=== PATIENT | female | born 1960 | race Caucasian/White ===

== ENCOUNTER → 2017-05-04 | Outpatient (CLI) | payer OTHER ==
[~2017-05-04] MED LIST: ISOS30TA4 PO; LOSA50TA20 PO; MELO15TA4 PO; METO25TA4 PO; NITR0.4S14 SL; OMEP20CA3 PO; SERT25TA88 PO; ZITHTAB PO
[2017-05-04 13:28] LABS: ALBUMIN 3.7 GM/DL (3.2-5.2); ALKALINE PHOSPHATASE 69 U/L (45-117); ALT/SGPT 37 U/L (12-78); ANION GAP 4 MEQ/L (8-16); AST/SGOT 15 U/L (15-37); BILIRUBIN,TOTAL 0.4 MG/DL (0.2-1.0); BLOOD UREA NITROGEN 17 MG/DL (7-18); CALCIUM LEVEL 9.2 MG/DL (8.5-10.1); CARBON DIOXIDE LEVEL 28 MEQ/L (21-32); CHLORIDE LEVEL 109 MEQ/L (98-107); CREATININE FOR GFR 0.81 MG/DL (0.55-1.02); GLOMERULAR FILTRATION RATE > 60.0 (>51); GLUCOSE, FASTING 100 MG/DL (70-105); POTASSIUM SERUM 4.7 MEQ/L (3.5-5.1); SODIUM LEVEL 141 MEQ/L (136-145); TOTAL PROTEIN 7.4 GM/DL (6.4-8.2)
[2017-05-04 13:31] LABS: BASO % 0.6 % (0.0-1.0); EOS # 0.2 K/mm3 (0.0-0.50); EOS % 4.1 % (0.0-3.0); LARGE UNSTAINED CELL # 0.1 K/mm3 (0.0-0.4); LARGE UNSTAINED CELL % 2.1 % (0.0-4.0); LYMPH # 1.8 K/mm3 (1.5-4.5); MEAN CORPUSCULAR HEMOGLOBIN 30.4 pg (27.0-33.0); MEAN CORPUSCULAR HGB CONC 34.1 g/dl (32.0-36.5); MEAN CORPUSCULAR VOLUME 89.1 fl (80.0-96.0); MONO # 0.3 K/mm3 (0.0-0.8); MONO % 4.3 % (0.0-5.0); NEUTROPHILS # 3.4 K/mm3 (1.8-7.7); NEUTROPHILS % 57.9 % (36.0-66.0); PLATELET COUNT, AUTOMATED 183 k/mm3 (150-450); RED CELL DISTRIBUTION WIDTH 12.9 % (11.5-14.5); WHITE BLOOD COUNT 5.9 K/mm3 (4.0-10.0)
== END ==
LOC: M SMT 11:04
PROVIDERS: ATTEND Podiatrist
DX: Z01.812 Encounter for preprocedural laboratory examination (principal)

== ENCOUNTER 2017-05-13 07:35 | Day surgery (SDC) | payer OTHER ==
[~2017-05-13] VITALS: Ht 170.2 cm; Wt 117.9 kg
[~2017-05-13 07:35] MED LIST changes: -ZITHTAB PO
[2017-05-13] MEDS ORDERED: VANCOMYCIN HCL 1,000 MG, VIAL MATE ADAPTER 1 EACH in D5W 250 ML IV ONE (08:00)
[2017-05-13] MEDS ORDERED: LR 1,000 ML IV ONE (08:00)
[2017-05-13] MEDS ORDERED: MIDAZOLAM INJ 2 MG/2 ML VIAL (J2250) As Ordered ONE (08:07)
[2017-05-13] MEDS ORDERED: LIDOCAINE 2% INJ 100 MG/5 ML SDV (FOR ANES.) As Ordered ONE (08:07)
[2017-05-13] MEDS ORDERED: PROPOFOL 200 MG/20 ML VIAL As Ordered ONE ×2 (08:07→12:17)
[2017-05-13] MEDS ORDERED: fentaNYL 100 MCG/2 ML INJECTION (J3010) As Ordered ONE (08:08)
[2017-05-13] MEDS ORDERED: ZITHTAB PO (08:19)
[2017-05-13] MEDS ORDERED: BUPIVACAINE HCL 0.5% 30 ML VIAL As Ordered ONE (09:13)
[2017-05-13] MEDS ORDERED: NEOSPORIN GU IRRIG 20 ML VIAL As Ordered ONE (09:13)
[2017-05-13] MEDS ORDERED: BACITRACIN PWD 50,000 UNITS VIAL As Ordered ONE (09:13)
[2017-05-13] MEDS ORDERED: LIDOCAINE 2% MDV 20 ML VIAL As Ordered ONE (09:13)
[2017-05-13] MEDS ORDERED: dexameTHASONE 4 MG/ML 1ML VIAL (J1100) As Ordered ONE (09:14)
[2017-05-13] MEDS ORDERED: ONDANSETRON 4MG/2ML VIAL (J2405) IV PRN (11:30)
[2017-05-13] MEDS ORDERED: NORCO, ANEXSIA 5/325MG TABLET (HYDROcodone/ACETAMINOPHEN) PO PRN (11:30)
[2017-05-13] MEDS ORDERED: LR 1,000 ML IV SCH (11:30)
[2017-05-13] MEDS ORDERED: fentaNYL 100 MCG/2 ML INJECTION (J3010) IV PRN (11:30)
[2017-05-13 13:20] VITALS: BP 140/85
[2017-05-13] MEDS ORDERED: NORCO, ANEXSIA 5/325MG TABLET (HYDROcodone/ACETAMINOPHEN) As Ordered ONE (13:35)
--- NOTE | 2017-05-13 14:40 | REP ---
RIGHT FOOT, THREE VIEWS: HISTORY: Postop. The patient is status post arthrodesis of the proximal interphalangeal joint space of the second digit. A metal pin is present. A metal pin is present in the head of the second metatarsal. There is no acute fracture or dislocation. IMPRESSION: Postoperative change as described above. There is anatomic alignment. Signed by Truong Sneed MD 05/13/2017 02:41 P
--- NOTE | 2017-05-14 09:29 | RO ---
DATE OF PROCEDURE: 05/13/2017 PREPROCEDURE DIAGNOSIS: Dislocated 2nd metatarsophalangeal joint with long 2nd metatarsal and hammertoe deformity 2nd toe, right foot. POSTPROCEDURE DIAGNOSIS: Dislocated 2nd metatarsophalangeal joint with long 2nd metatarsal and hammertoe deformity 2nd toe, right foot. PROCEDURE: 1. Shortening 2nd metatarsal osteotomy with internal screw fixation 2.0 mm x 13 mm x 1, right foot. 2. Proximal interphalangeal joint arthroplasty with DigiFuse fixation 2.0 x 10 degree angled 2nd toe, right foot:. SURGEON: Dr. Fuad Kaur DPM IRRIGATING PUMP OPERATOR: None. ANESTHESIA: Local MAC IRRIGATION: Dilute bacitracin, neomycin and polymyxin B solution HEMOSTASIS: Ankle pneumatic tourniquet at 200 mmHg, 72 minutes. IMPLANTS UTILIZED: 2 mm QuickFix Titanium screw 2.0 x 13 mm. DESCRIPTION OF PROCEDURE: On 05/13/2017, this 57-year-old white female was taken from her hospital room to the operating room and placed on the operating table in supine position. Following the induction of IV sedation and local and regional anesthesia, the right lower extremity was prepped and draped in the usual aseptic manner. Attention was directed to the patient's right foot where the following procedure was performed: SHORTENING 2nd METATARSAL OSTEOTOMY WITH INTERNAL SCREW FIXATION 2.0 mm x 13 mm x 1, RIGHT FOOT: Attention was directed to the patient's right foot where an incision was made from the proximal interphalangeal joint with the apex off-centered into the lateral sulcus and then curving onto the metatarsal. The incision was deepened through the subcutaneous tissue and all coursing venous tributaries were identified, underscored, clamp, ligated and electrocoagulated as necessary. Dissection was carried down to the extensor tendons, which were retracted in a medial direction and a linear incision was placed along the capsule, exposing the head of the 2nd metatarsal. Utilizing a power saw, an osteotomy was performed through the cartilage of the 2nd metatarsal and temporarily shortened 10 mm and held with a Steinmann pin. 4 mm of bone was then shaved off the dorsal ledge. This was extirpated from the wound. Attention was then directed to the 2nd toe where the following procedure was performed: PROXIMAL INTERPHALANGEAL JOINT ARTHROPLASTY WITH DIGIFUSE FIXATION 2.0 x 10 DEGREE ANGLED 2nd TOE, RIGHT FOOT: A tenotomy was performed at the level of the proximal interphalangeal joint of the 2nd toe and the extensor expansion and lam were released. Medial and lateral collateral ligaments were sharply dissected free from the proximal phalanx. Utilizing a power saw, an osteotomy was performed at the anatomical neck of the proximal phalanx from dorsal to plantar, through and through and extirpated from the wound in toto. The cartilage off the middle phalanx was similarly osteotomized from dorsal to plantar. This would later be closed with a 2.0 x 10 degree angled DigiFuse. Attention was then directed now to the plantar plate, which was noted to have a full tear of the plantar plate with the exception of a small attached lateral margin. Utilizing a Scorpion with #2 FiberWire, the plantar plate was grasped. Two drill holes were drilled parallel through the proximal phalanx and then the suture was retrieved up in a dorsal fashion. The Steinmann pin was then pulled from the 2nd metatarsal. The metatarsal was brought to its normal position after being shortened 4 mm and fixated with a snap-off 2.0 x 13 mm titanium screw. DigiFuse was then placed through the proximal phalanx with a 2.0 x 10 degree angled and this was set in the standard fashion. The toe was then held in a plantar flexed position and #2 FiberWire was then used to attach the plantar plate to the base of the proximal phalanx, which was previously roughed with a handheld file on the plantar margin to facilitate ingrowth. The wound was flushed with copious amounts of dilute bacitracin, neomycin and polymyxin B solution. The extensor tendon was repaired with #2-0 braided looped nylon suture in a four-stranded Block repair. Skin was coapted and maintained with #4-0 Prolene in a simple interrupted type fashion with an apical stitch at the apex of the wound. Attention was directed towards bandaging where a sterile compressive bandage was applied consisting of Adaptic, 4 x 4's, 4 x 4 splints, Abelino, Kerlix and Coban. Ankle pneumatic tourniquet was rapidly deflated and instantaneous capillary filling time was noted in digits 1-5 of the patient's right foot. The patient having apparently tolerated the surgical procedure well was taken from the operating room to the recovery room, vital signs stable, patient afebrile, further monitoring by the anesthesia department. All surgical specimens removed during the operative procedure were sent to Pathology for gross and microscopic examination. Postoperative instructions given upon discharge. JORGE
== END 2017-05-13 14:30 | disposition home or self-care (01) ==
LOC: M SDC 07:35
PROVIDERS: ATTEND Podiatrist
DX: M20.41 Other hammer toe(s) (acquired), right foot (principal); M79.671 Pain in right foot; S93.124A Dislocation of metatarsophalangeal joint of right lesser toe(s), initial encounter; X58.XXXA Exposure to other specified factors, initial encounter; Y92.89 Other specified places as the place of occurrence of the external cause; Y93.89 Activity, other specified; Y99.8 Other external cause status; I10 Essential (primary) hypertension; K21.9 Gastro-esophageal reflux disease without esophagitis; K44.9 Diaphragmatic hernia without obstruction or gangrene; F41.9 Anxiety disorder, unspecified; F32.9 Major depressive disorder, single episode, unspecified; J45.909 Unspecified asthma, uncomplicated; R07.89 Other chest pain; Z88.2 Allergy status to sulfonamides; Z88.0 Allergy status to penicillin
CPT/HCPCS: 28285; 28308; 28899; 73630; 88300; 97116; C1776

== ENCOUNTER → 2017-11-12 | Outpatient (CLI) | payer OTHER ==
[2017-11-12 18:00] LABS: BASO % 0.3 % (0.0-1.0); EOS # 0.3 10^3/uL (0.0-0.50); EOS % 3.2 % (0.0-3.0); HEMATOCRIT 44.1 % (36.0-47.0); HEMOGLOBIN 14.4 g/dl (12.0-16.0); IMMATURE GRANULOCYTE % 0.2 % (0-3.0); LYMPH # 2.7 10^3/uL (1.5-4.5); LYMPH % 30.8 % (24.0-44.0); MEAN CORPUSCULAR HEMOGLOBIN 29.7 pg (27.0-33.0); MEAN CORPUSCULAR HGB CONC 32.7 g/dl (32.0-36.5); MEAN CORPUSCULAR VOLUME 90.9 fl (80.0-96.0); MONO # 0.6 10^3/uL (0.0-0.8); MONO % 7.3 % (0.0-5.0); NEUTROPHILS # 5.1 10^3/uL (1.8-7.7); NEUTROPHILS % 58.2 % (36.0-66.0); PLATELET COUNT, AUTOMATED 240 10^3/uL (150-450); RED BLOOD COUNT 4.85 10^6/uL (4.00-5.40); RED CELL DISTRIBUTION WIDTH 12.6 % (11.5-14.5); WHITE BLOOD COUNT 8.8 10^3/uL (4.0-10.0)
== END ==
LOC: M ADAMS 16:37
DX: J20.9 Acute bronchitis, unspecified (principal)
CPT/HCPCS: 85025

== ENCOUNTER 2018-11-25 14:16 | Emergency (ER) | payer OTHER ==
[~2018-11-25] VITALS: Ht 170.2 cm; Wt 118.6 kg
[~2018-11-25 14:16] MED LIST changes: -LOSA50TA20 PO; +LOSA50TA88 PO; +MELO15TA28 PO; -MELO15TA4 PO; +ZITHTAB PO
[2018-11-25 15:12] LABS: BASO % 0.2 % (0.0-1.0); EOS # 0.1 10^3/uL (0.0-0.50); EOS % 1.2 % (0.0-3.0); HEMATOCRIT 44.3 % (36.0-47.0); HEMOGLOBIN 14.8 g/dl (12.0-15.5); LYMPH # 1.3 10^3/uL (1.5-4.5); LYMPH % 21.8 % (24.0-44.0); MEAN CORPUSCULAR HEMOGLOBIN 29.8 pg (27.0-33.0); MEAN CORPUSCULAR HGB CONC 33.4 g/dl (32.0-36.5); MEAN CORPUSCULAR VOLUME 89.3 fl (80.0-96.0); MONO # 0.5 10^3/uL (0.0-0.8); NEUTROPHILS # 3.9 10^3/uL (1.8-7.7); NEUTROPHILS % 68.6 % (36.0-66.0); PLATELET COUNT, AUTOMATED 188 10^3/uL (150-450); RED BLOOD COUNT 4.96 10^6/uL (4.00-5.40); WHITE BLOOD COUNT 5.7 10^3/uL (4.0-10.0)
[2018-11-25] MEDS ORDERED: PANTOPRAZOLE 40MG INJ (PROTONIX) (C9113) IV ONE (15:15)
[2018-11-25] MEDS ORDERED: NS 1,000 ML IV ONE (15:15)
[2018-11-25] MEDS ORDERED: METOCLOPRAMIDE INJ 10MG/2ML VIAL (J2765) IV ONE (15:15)
[2018-11-25 15:41] LABS: ALBUMIN 3.8 GM/DL (3.2-5.2); BILIRUBIN,DIRECT 0.2 MG/DL (0.0-0.2); BILIRUBIN,TOTAL 0.9 MG/DL (0.2-1.0); CALCIUM LEVEL 8.5 MG/DL (8.5-10.1); CREATININE FOR GFR 1.18 MG/DL (0.55-1.30); GLOMERULAR FILTRATION RATE 50.3 (>51); POTASSIUM SERUM 4.1 MEQ/L (3.5-5.1); TOTAL PROTEIN 7.7 GM/DL (6.4-8.2)
--- NOTE | 2018-11-25 15:55 | REP ---
Acute abdominal series three views including PA chest and supine upright abdomen: PA chest: Comparison is 11/21/2011. The lung jennings are clear. Cardiac size is normal. The victorino, mediastinum, skeletal structures are unremarkable. There is no free subdiaphragmatic air. Impression: Negative PA chest. Abdomen, three views including two supine and one upright views: The bowel gas pattern is normal. There is a faintly visible calcification in the pelvis on the left, nonspecific, ureteral versus phlebolith. The skeletal structures and soft tissues otherwise are unremarkable except for mild scoliosis convex right at the thoracolumbar junction and left in the lower lumbar spine. Impression: Normal bowel gas pattern. Scoliosis. Pelvic calcification as described. Electronically Signed by Mario Johnson MD 11/25/2018 03:47 P
[2018-11-25] MEDS ORDERED: IMOD2CAP PO (16:11)
[2018-11-25 16:55] VITALS: BP 128/64
--- NOTE | 2018-11-26 17:44 | ECGEPIP ---
Stationary ECG Study [facility] - ED Test Date: 2018-11-25 Pat Name: DUSTIN CONRAD Department: Room: - Gender: F [employer]: joy : 1960 Requested By: Gen Engle Order Number: [id number] Reading MD: Mary Jane Fan Measurements Intervals [place] Rate: 73 P: 18 OK: 163 QRS: 1 QRSD: 89 T: 3 QT: 376 QTc: 415 Interpretive Statements SINUS RHYTHM LOW QRS VOLTAGE IN PRECORDIAL LEADS POSSIBLE INFERIOR MYOCARDIAL INFARCTION, PROBABLY OLD NSTTW ABNORMALITY DELAYED R PROGRESSION INCREASED RATE 11/22/11 Electronically Signed On 11-26-2018 17:44:15 EST by Mary Jane Fan
== END 2018-11-25 16:57 | disposition home or self-care (01) ==
LOC: M ED 14:16
DX: A08.4 Viral intestinal infection, unspecified (principal); K21.9 Gastro-esophageal reflux disease without esophagitis
CPT/HCPCS: 74021; 80048; 80076; 83690; 85025; 93005; 93041; 96374; 96375; 99284; C9113; J2765

== ENCOUNTER 2019-09-27 22:31 | Emergency (ER) | payer OTHER ==
[~2019-09-27] VITALS: Ht 170.2 cm; Wt 122.7 kg
[~2019-09-27 22:31] MED LIST changes: +IMOD2CAP PO; +OMEP-172 PO; -OMEP20CA3 PO; +SERT25TA21 PO; -SERT25TA88 PO
[2019-09-28 00:13] LABS: BASO % 0.4 % (0.0-1.0); EOS # 0.2 10^3/uL (0.0-0.5); EOS % 1.6 % (0.0-3.0); HEMATOCRIT 46.7 % (36.0-47.0); HEMOGLOBIN 15.4 g/dl (12.0-15.5); LYMPH # 1.5 10^3/uL (1.5-5.0); LYMPH % 14.6 % (24.0-44.0); MEAN CORPUSCULAR VOLUME 90.9 fl (80.0-96.0); MONO # 0.6 10^3/uL (0.0-0.8); PLATELET COUNT, AUTOMATED 236 10^3/uL (150-450); RED BLOOD COUNT 5.14 10^6/uL (4.00-5.40); WHITE BLOOD COUNT 10.4 10^3/uL (4.0-10.0)
[2019-09-28 00:22] LABS: ALBUMIN 3.9 GM/DL (3.2-5.2); BILIRUBIN,DIRECT 0.2 MG/DL (0.0-0.2); BILIRUBIN,TOTAL 0.5 MG/DL (0.2-1.0); CALCIUM LEVEL 8.8 MG/DL (8.5-10.1); CREATININE FOR GFR 1.13 MG/DL (0.55-1.30); GLOMERULAR FILTRATION RATE 52.6 (>51); POTASSIUM SERUM 3.9 MEQ/L (3.5-5.1); TOTAL PROTEIN 7.8 GM/DL (6.4-8.2)
[2019-09-28] MEDS ORDERED: ONDANSETRON 4MG/2ML VIAL (J2405) IV ONE (00:45)
[2019-09-28] MEDS ORDERED: NS 1,000 ML IV ONE (01:30)
[2019-09-28] MEDS ORDERED: KETOROLAC 30 MG/ML VIAL (J1885) IV ONE (01:30)
[2019-09-28] MEDS ORDERED: ZOFR4TAB16 PO (01:44)
[2019-09-28 03:51] VITALS: BP 117/76
== END 2019-09-28 03:53 | disposition home or self-care (01) ==
LOC: M ED 22:31
DX: R19.7 Diarrhea, unspecified (principal); R11.0 Nausea; I10 Essential (primary) hypertension; K21.9 Gastro-esophageal reflux disease without esophagitis; F41.9 Anxiety disorder, unspecified; K44.9 Diaphragmatic hernia without obstruction or gangrene; J45.909 Unspecified asthma, uncomplicated; Z88.0 Allergy status to penicillin; Z88.2 Allergy status to sulfonamides; Z79.899 Other long term (current) drug therapy
CPT/HCPCS: 80048; 80076; 83690; 85025; 96361; 96374; 96375; 99284; J1885; J2405

== ENCOUNTER 2021-12-03 13:25 | Emergency (ER) | payer OTHER ==
[~2021-12-03] VITALS: Ht 170.2 cm; Wt 123.8 kg
[~2021-12-03 13:25] MED LIST changes: -ONDA4TAB6 PO
[2021-12-03 13:26] VITALS: BP 145/78
[2021-12-03] MEDS ORDERED: ONDANSETRON 4 MG ORAL DISINTEGRATING TAB PO ONE (14:55)
[2021-12-03] MEDS ORDERED: ONDA4TAB6 PO ×2 (16:09→16:18)
== END 2021-12-03 16:37 | disposition home or self-care (01) ==
LOC: M ED 13:25
DX: U09.9 Post COVID-19 condition, unspecified (principal); R11.2 Nausea with vomiting, unspecified; R19.7 Diarrhea, unspecified; M54.2 Cervicalgia; W00.0XXA Fall on same level due to ice and snow, initial encounter; Y92.9 Unspecified place or not applicable; Y93.9 Activity, unspecified; Y99.9 Unspecified external cause status; M47.812 Spondylosis without myelopathy or radiculopathy, cervical region; M50.30 Other cervical disc degeneration, unspecified cervical region; I10 Essential (primary) hypertension; J45.909 Unspecified asthma, uncomplicated; K21.9 Gastro-esophageal reflux disease without esophagitis; K58.8 Other irritable bowel syndrome; F41.9 Anxiety disorder, unspecified; F32.A Depression, unspecified; F17.200 Nicotine dependence, unspecified, uncomplicated; Z88.0 Allergy status to penicillin; Z88.2 Allergy status to sulfonamides; Z79.899 Other long term (current) drug therapy
CPT/HCPCS: 70450; 72125; 93005; 99284; Q0162

== ENCOUNTER → 2021-12-03 | Outpatient (CLI) | payer OTHER ==
[~2021-12-03] MED LIST changes: +ISOS1TAB35 PO; -ISOS30TA4 PO; +LOSA50TA28 PO; -LOSA50TA88 PO; -OMEP-172 PO; +OMEP1CAP73 PO; +ONDA4TAB6 PO; +ZOFR4TAB16 PO
[2021-12-03 13:23] LABS: HEMATOCRIT 44.7 % (36.0-47.0); HEMOGLOBIN 14.6 g/dl (12.0-15.5); MEAN CORPUSCULAR HEMOGLOBIN 29.7 pg (27.0-33.0); MEAN CORPUSCULAR HGB CONC 32.7 g/dl (32.0-36.5); PLATELET COUNT, AUTOMATED 217 10^3/uL (150-450); RED BLOOD COUNT 4.91 10^6/uL (4.00-5.40); WHITE BLOOD COUNT 7.3 10^3/uL (4.0-10.0)
[2021-12-03 13:47] LABS: ALBUMIN 4.1 GM/DL (3.2-5.2); BILIRUBIN,TOTAL 0.5 MG/DL (0.2-1.0); CALCIUM LEVEL 9.1 MG/DL (8.8-10.2); CHOLESTEROL RISK RATIO 4.764 (<5); CREATININE FOR GFR 1.06 MG/DL (0.55-1.30); GLOMERULAR FILTRATION RATE 56.3 (>45); POTASSIUM SERUM 4.2 MEQ/L (3.5-5.1); TOTAL PROTEIN 7.9 GM/DL (6.4-8.2)
== END ==
LOC: M WUC 10:33
PROVIDERS: ATTEND Internal Medicine Cardiovascular Disease
DX: Z00.00 Encounter for general adult medical examination without abnormal findings (principal)

== ENCOUNTER → 2021-12-05 | Outpatient (REF) | payer OTHER ==
[~2021-12-05] MED LIST changes: +ONDA4TAB6 PO
== END ==
LOC: M LAB REF 09:30
PROVIDERS: ATTEND Physician Assistant Medical
DX: R19.7 Diarrhea, unspecified (principal)

== ENCOUNTER → 2023-06-24 | Outpatient (CLI) | payer OTHER | LOC: M RAD 15:40 | PROVIDERS: ATTEND Internal Medicine Cardiovascular Disease | DX: J44.9 Chronic obstructive pulmonary disease, unspecified (principal); R13.10 Dysphagia, unspecified ==

== ENCOUNTER → 2023-08-03 | Outpatient (CLI) | payer OTHER ==
[~2023-08-03] MED LIST changes: +E-Z-GAS II EFFERVESCENT PACKET (SODIUM BICARB./CITRIC ACID/SIMETHICONE) As Ordered ONE; +E-Z-HD 98% w/w 340GM SUSP BTL As Ordered ONE; +E-Z-PAQUE 96% w/w SUSP 176GM BTL As Ordered ONE
== END ==
LOC: M RAD 08:29
PROVIDERS: ATTEND Internal Medicine Cardiovascular Disease
DX: R13.10 Dysphagia, unspecified (principal)

== ENCOUNTER 2024-07-11 16:33 | Emergency (ER) | payer OTHER ==
[~2024-07-11] VITALS: Ht 170.2 cm; Wt 119.8 kg
[~2024-07-11 16:33] MED LIST changes: -E-Z-GAS II EFFERVESCENT PACKET (SODIUM BICARB./CITRIC ACID/SIMETHICONE) As Ordered ONE; -E-Z-HD 98% w/w 340GM SUSP BTL As Ordered ONE; -E-Z-PAQUE 96% w/w SUSP 176GM BTL As Ordered ONE; +ONDA-282 PO; -ONDA4TAB6 PO
[2024-07-11] MEDS: methylPREDNISolone 125MG 2ML VIAL IV ONE (22:57)
[2024-07-11] MEDS: KETOROLAC 30 MG/ML 1ML VIAL IV ONE (22:57)
[2024-07-11] MEDS: methocarbamoL 500 MG TAB PO ONE (22:57)
[2024-07-12] MEDS ORDERED: METH-1164 PO (01:29)
[2024-07-12] MEDS ORDERED: IBUP-1022 PO (01:29)
[2024-07-12] MEDS ORDERED: PRED10TA2 PO (01:29)
[2024-07-12 02:06] VITALS: BP 150/74; TEMP 96.9; O2SAT 96
== END 2024-07-12 02:08 | disposition home or self-care (01) ==
LOC: M ED 16:33
DX: M51.360 Other intervertebral disc degeneration, lumbar region with discogenic back pain only (principal); M54.31 Sciatica, right side; I10 Essential (primary) hypertension; K21.9 Gastro-esophageal reflux disease without esophagitis; Z88.0 Allergy status to penicillin; Z88.2 Allergy status to sulfonamides; Z79.1 Long term (current) use of non-steroidal anti-inflammatories (NSAID); Z79.899 Other long term (current) drug therapy; Z79.52 Long term (current) use of systemic steroids
CPT/HCPCS: 70450; 72131; 96374; 99284; J1885; J2919

== ENCOUNTER 2024-07-28 16:37 | Emergency (ER) | payer OTHER ==
[~2024-07-28] VITALS: Ht 170.2 cm; Wt 115.0 kg
[~2024-07-28 16:37] MED LIST changes: +IBUP-1022 PO; +METH-1164 PO; +PRED10TA2 PO
[2024-07-28] MEDS ORDERED: NEUR300C PO (17:35)
[2024-07-28 17:48] VITALS: BP 142/67; TEMP 97.8; O2SAT 98
[2024-07-28] MEDS: GABAPENTIN 300 MG CAP PO ONE (17:48)
== END 2024-07-28 17:57 | disposition home or self-care (01) ==
LOC: M ED 16:37
DX: M54.31 Sciatica, right side (principal); I10 Essential (primary) hypertension; Z88.0 Allergy status to penicillin; Z88.2 Allergy status to sulfonamides; Z79.1 Long term (current) use of non-steroidal anti-inflammatories (NSAID); Z79.52 Long term (current) use of systemic steroids; Z79.899 Other long term (current) drug therapy

== ENCOUNTER 2024-08-19 07:19 | Emergency (ER) | payer OTHER ==
[~2024-08-19] VITALS: Ht 170.2 cm; Wt 115.0 kg
[~2024-08-19 07:19] MED LIST changes: +NEUR300C PO
[2024-08-19] MEDS ORDERED: DICL75TA (07:32)
[2024-08-19] MEDS: methylPREDNISolone 125MG 2ML VIAL IV ONE (08:59)
[2024-08-19] MEDS: KETOROLAC 30 MG/ML 1ML VIAL IV ONE (08:59)
[2024-08-19] MEDS: GABAPENTIN 300 MG CAP PO ONE (08:59)
[2024-08-19] MEDS: ACETAMINOPHEN *IV* 1,000 MG in IV 1 EA IV ONE (10:40)
[2024-08-19] MEDS: methocarbamoL 500 MG TAB PO ONE (10:50)
[2024-08-19] MEDS ORDERED: METH-1164 PO (12:13)
[2024-08-19 12:24] VITALS: BP 142/82; TEMP 97.7; O2SAT 95
== END 2024-08-19 12:35 | disposition home or self-care (01) ==
LOC: M ED 07:19
DX: M54.50 Low back pain, unspecified (principal); I10 Essential (primary) hypertension; Z88.0 Allergy status to penicillin; Z88.2 Allergy status to sulfonamides; Z79.1 Long term (current) use of non-steroidal anti-inflammatories (NSAID); Z79.899 Other long term (current) drug therapy
CPT/HCPCS: 80047; 96365; 96375; 99284; J0131; J1885; J2919